=== PATIENT | female | born 1945 | race Caucasian/White ===

== ENCOUNTER 2018-03-04 07:32 | Emergency (ER) | payer MEDICARE ==
--- NOTE | 2018-03-04 08:03 | C.PDOC ---
History Of Present Illness l <Sondra Ca - Last Filed: 03/04/18 08:41> <Atif Galvan V - Last Filed: 03/04/18 08:03> <Sondra Ca - Last Filed: 03/04/18 08:41> Chief Complaint (Nursing): Lower Extremity Problem/Injury Past Medical History Vital Signs: Last Vital Signs Temp 97.8 F 03/04/18 07:55 Pulse 63 03/04/18 07:55 Resp 18 03/04/18 07:55 BP 132/79 03/04/18 07:55 Pulse Ox 95 03/04/18 07:55 - Medical History PMH: Arthritis - Social History Hx Alcohol Use: No Hx Substance Use: No - Immunization History Hx Tetanus Toxoid Vaccination: No Hx Influenza Vaccination: Yes Hx Pneumococcal Vaccination: Yes <Atif Galvan V - Last Filed: 03/04/18 08:03> Vital Signs: Last Vital Signs Temp 97.8 F 03/04/18 07:55 Pulse 63 03/04/18 07:55 Resp 18 03/04/18 07:55 BP 132/79 03/04/18 07:55 Pulse Ox 95 03/04/18 08:03 <Sondra Ca - Last Filed: 03/04/18 08:41> ED Course And Treatment O2 Sat by Pulse Oximetry: 95 <Atif Galvan V - Last Filed: 03/04/18 08:03> Disposition <Atif Galvan V - Last Filed: 03/04/18 08:03> <Sondra Ca - Last Filed: 03/04/18 08:41> - Disposition Forms: [employer] (Nauruan)
[2018-03-04 08:57] LABS: BASO # 0.1 K/uL (0.0-0.2); BASO % 0.8 % (0.0-2.0); EOS # 0.3 K/uL (0.0-0.7); EOS % 4.7 % (0.0-4.0); HEMOGLOBIN 13.1 g/dL (11.0-16.0); LYMPH # 1.7 K/uL (1.0-4.3); LYMPH % 25.6 % (20.0-40.0); MEAN CELL VOLUME 93.4 fL (81.0-99.0); MEAN CORPUSCULAR HEMOGLOBIN 31.2 pg (27.0-31.0); MEAN CORPUSCULAR HGB CONC 33.4 g/dL (33.0-37.0); MEAN PLATELET VOLUME 10.2 fL (7.2-11.7); MONO # 0.6 K/uL (0.0-0.8); MONO % 8.3 % (0.0-10.0); NEUT # 4.1 K/uL (1.8-7.0); NEUT % 60.6 % (50.0-75.0); RBC 4.2 Mil/uL (3.80-5.20); RED CELL DISTRIBUTION WIDTH 13.7 % (11.5-14.5); WHITE BLOOD COUNT 6.8 K/uL (4.8-10.8)
[2018-03-04 09:05] LABS: INR 0.9; PROTHROMBIN TIME 10.3 SECONDS (9.7-12.2)
[2018-03-04 09:20] LABS: ALB/GLOB RATIO 1.4 (1.0-2.1); ALBUMIN 3.7 g/dL (3.5-5.0); ALT/SGPT 27 U/L (9-52); AST/SGOT 35 U/L (14-36); BLOOD UREA NITROGEN 19 mg/dL (7-17); CALCIUM 8.7 mg/dl (8.6-10.4); GFR NON-AFRICAN AMERICAN > 60
[2018-03-04 11:08] VITALS: RESP 16; O2SAT 98
--- NOTE | 2018-03-04 11:59 | C.PDOC ---
History Of Present Illness 72 year old female presents to the ED for evaluation of worsening right leg pain and swelling for 5 days. The patient reports pain behind the knee. She notes swelling began today which prompted ED visit. Denies fever, chills, numbness, tingling, trauma, and any other associated symptoms. Chief Complaint (Nursing): Lower Extremity Problem/Injury History Per: Patient History/Exam Limitations: no limitations Onset/Duration Of Symptoms: Days Current Symptoms Are (Timing): Still Present - Knee Description Of Injury: denies: Fell, Struck With Object Past Medical History Reviewed: Historical Data, Nursing Documentation, Vital Signs Vital Signs: Last Vital Signs Temp 97.4 F L 03/04/18 11:07 Pulse 60 03/04/18 11:07 Resp 16 03/04/18 11:07 BP 125/73 03/04/18 11:07 Pulse Ox 98 03/04/18 11:07 - Medical History PMH: Arthritis Family History: States: Unknown Family Hx - Social History Hx Alcohol Use: No Hx Substance Use: No - Immunization History Hx Tetanus Toxoid Vaccination: No Hx Influenza Vaccination: Yes Hx Pneumococcal Vaccination: Yes Review Of Systems Except As Marked, All Systems Reviewed And Found Negative. Constitutional: Negative for: Fever, Chills, Other (trauma.) Musculoskeletal: Positive for: Other (right knee pain with swelling. ) Neurological: Negative for: Weakness, Numbness, Incoordination Physical Exam - Physical Exam Appears: Well, Non-toxic, No Acute Distress Skin: Warm, Dry Head: Atraumatic, Normacephalic Eye(s): bilateral: Normal Inspection Oral Mucosa: Moist Neck: Normal ROM, Supple Chest: Symmetrical, No Deformity Cardiovascular: Rhythm Regular, No Murmur Respiratory: Normal Breath Sounds, No Rales, No Rhonchi, No Wheezing Gastrointestinal/Abdominal: Normal Exam, Soft, No Tenderness Extremity: Calf Tenderness (mild.), Capillary Refill (less than 2 seconds. ), No Deformity, Swelling (to the entire lower right extremity.) Neurological/Psych: Oriented x3, Normal Speech, Normal Cognition, Normal Motor, Normal Sensation, Normal Reflexes ED Course And Treatment - Laboratory Results Result Diagrams: 03/04/18 08:53 03/04/18 08:53 O2 Sat by Pulse Oximetry: 98 (RA) Pulse Ox Interpretation: Normal - Other Rad Knee xray X-Ray: Viewed By Me, Read By Radiologist Interpretation: Accession No. : [id number]. Patient Name / ID : NATALY CRAWFORD / [id number]. Exam Date : 03/04/2018 08:54:28 ( Approved ). Study Comment : Sex / Age : F / 72Y. Creator : Cyrus Ramos MD. Dictator : Cyrus Ramos MD. Slab Lifting Engineer : Recooperer : Cyrus Ramos MD. Approver2 : Report Date : 03/04/2018 13:41:37. My Comment : . Date of service: 03/04/2018. PROCEDURE: Right Knee Radiographs. HISTORY: atraumatic pain. COMPARISON: None. FINDINGS: BONES: Normal. No fracture. JOINTS: Moderate to severe tricompartmental osteoarthritis. No articular erosion. JOINT EFFUSION: None. OTHER FINDINGS: None. IMPRESSION: Moderate to severe tricompartmental osteoarthritis. Progress Note: Plan: RT Knee x-ray (see report above). Blood sent and reviewed. Venous Duplex Scan Low. Ext. RT negative for DVT as per geotechnical operating engineer. Progress/Update: Patient is stable for discharge home. Advised to return to the ED if symptoms worsen and to follow up with PMD with 1-2 days. Disposition - Disposition Disposition: HOME/ ROUTINE Disposition Time: 11:58 Condition: STABLE Additional Instructions: Follow up with PMD within 1-2 days. Return to ED if feel worse. Instructions: Knee Pain (DC) Forms: [employer] ([place]se) - Clinical Impression Clinical Impression: Knee pain - PA / FRONT DESK COORDINATOR / Resident Statement MD/DO has reviewed & agrees with the documentation as recorded. - Scribe Statement The provider has reviewed the documentation as recorded by the Scribe (Lacie Thomas) All medical record entries made by the Scribe were at my direction and personally dictated by me. I have reviewed the chart and agree that the record accurately reflects my personal performance of the history, physical exam, medical decision making, and the department course for this patient. I have also personally directed, reviewed, and agree with the discharge instructions and disposition.
[2018-03-04 12:07] VITALS: BP 126/72; PULSE 61; TEMP 97.5
--- NOTE | 2018-03-04 13:45 | RAD ---
Date of service: 03/04/2018 PROCEDURE: Right Knee Radiographs. HISTORY: atraumatic pain COMPARISON: None. FINDINGS: BONES: Normal. No fracture. JOINTS: Moderate to severe tricompartmental osteoarthritis. No articular erosion. JOINT EFFUSION: None. OTHER FINDINGS: None. IMPRESSION: Moderate to severe tricompartmental osteoarthritis.
--- NOTE | 2018-03-05 11:47 | VASCLAB ---
Date of service: 03/04/2018 PROCEDURE: Right Lower Extremity Venous Duplex Exam. HISTORY: swelling/pain, r/o DVT PRIORS: None. TECHNIQUE: Right common femoral, femoral, popliteal and posterior tibial, peroneal and great saphenous veins were evaluated. Flow was assessed with color Doppler, compressibility, assessment of phasic flow and augmentation response. Report prepared by RAJAT Chan FINDINGS: RIGHT: 1. Common Femoral Vein: 1.1. Compressibility - Fully compressible: Thrombus - None: Flow - Phasic: Augmentation -Normal: Reflux - None. 2. Femoral Vein: 2.1. Compressibility - Fully compressible: Thrombus - None: Flow - Phasic: Augmentation -Normal: Reflux - None. 3. Popliteal Vein: 3.1. Compressibility - Fully compressible: Thrombus - None: Flow - Phasic: Augmentation -Normal: Reflux - None. 4. Posterior Tibial Vein: 4.1. Compressibility - Fully compressible: Thrombus - None: Flow - Phasic: Augmentation -Normal: Reflux - None. 5. Peroneal Vein: 5.1. Compressibility - Fully compressible: Thrombus - None: Flow - Phasic: Augmentation -Normal: Reflux - None. 6. Great Saphenous Vein: 6.1. Compressibility - Fully compressible: Thrombus -None: Flow - Phasic: Augmentation - Normal: Reflux - None. OTHER FINDINGS: IMPRESSION: No evidence of deep or superficial vein thrombosis of the right lower extremity with excellent venous flow. Normal valve function noted of the right side. Normal venous flow noted in the left common femoral vein.
== END 2018-03-04 12:06 | disposition home or self-care (01) ==
LOC: C.ER 07:32
DX: M25.561 Pain in right knee (principal)